=== PATIENT | female | born 1985 | race Caucasian/White ===

== ENCOUNTER 2020-01-26 13:29 | Emergency (ER) | payer BC, SELFPAY ==
--- NOTE | ~2020-01-26 | XR_ITS ---
EXAMINATION: XR ankle LT min 3V DATE: 01/26/2020 13:50 INDICATION: Left ankle injury and pain. TECHNIQUE: 4 views of left ankle were obtained. COMPARISON: Left ankle radiographs 10/08/2008 FINDINGS: Bone alignment is normal. No fracture. Joint spaces are well maintained. There is an enthes ophyte at plantar aspect of calcaneal tuberosity. Ankle soft tissue swelling is noted. IMPRESSION: 1. No acute fracture. Reviewed, dictated and finalized at location A. OR [employer]ENT IMPRESSION: 1. No acute fracture.
--- NOTE | ~2020-01-26 | XR_ITS ---
EXAMINATION: XR foot LT min 3V DATE: 01/26/2020 13:51 INDICATION: Left foot injury. TECHNIQUE: 4 views of left foot were obtained. COMPARISON: None. FINDINGS: Bone alignment is normal. No fracture. There is mild osteoarthritis of first metatarsophala ngeal joint. There is an enthesophyte at plantar aspect of calcaneal tuberosity. IMPRESSION: 1. No fracture. Reviewed, dictated and finalized at location A. ON PRESSER IMPRESSION: 1. No fracture.
--- NOTE | 2020-01-26 13:32 | ED.LOWEXIN ---
HPI - Extremity Injury (Lower) General Chief Complaint: Extremity Injury, Lower Stated Complaint: L/foot injury Time Seen by Provider: 01/26/20 13:32 Source: patient Mode of arrival: ambulatory Limitations: no limitations History of Present Illness HPI Narrative: Janeen Cabrera is a 34 yo female with no PMH who rolled ankle while walking, having pain on lateral side of left foot unable to bear full weight without pain, swelling obvious at base of lateral malleolus, incident occurred POA. In slippers and slid, no ther injury, no abrasions Related Data Home Medications Medication Instructions Recorded Confirmed norethindrone-e.estradiol-iron 1 tablet DAILY 01/26/20 01/26/20 [Microgestin FE 02/26 (28)] Allergies Allergy/AdvReac Type Severity Reaction Status Date / Time No Known Allergies Allergy Mild Verified 01/26/20 13:37 Review of Systems Review of Systems: Narrative: CONSTITUTIONAL: Denies fever, chills, sweats. EYES: Denies visual changes, redness, discharge. ENT: Denies rhinorrhea, congestion, sore throat, otalgia. CARDIOVASCULAR: Denies chest pain, palpitations, edema. RESPIRATORY: Denies dyspnea, wheezing, cough GASTROINTESTINAL: Denies abdominal pain, nausea, vomiting, diarrhea. GENITOURINARY: Denies dysuria, hematuria, abnormal discharge SKIN: Denies rash or itching. NEUROLOGIC: Denies numbness, or focal weakness. PSYCHIATRIC: Denies anxiety or depression. Left lateral ankle pain and swelling PMFSH Past Medical History Medical History No acute medical problems Family History Family History (Updated 01/26/20 @ 14:05 by Angela Bowen CNP) Other No acute medical problems Social History Social History (Updated 01/26/20 @ 14:05 by Angela Bowen CNP) Smoking status: Never smoker Alcohol intake: current Gender identity (if verbalized by the patient): Female Comments At time of signature, I agree with nursing past medical, surgical, social and family history. There is no relevant family history pertinent to the presenting complaint. Exam Narrative: Exam Narrative: GENERAL: This is a well-nourished, well-developed patient, in mild distress. HEAD: normocephalic, atraumatic. EYES: PERRL. Sclera clear/white. Vision is grossly intact. EARS: External ears normal, auditory canals clear and without drainage, TMs normal without perforation. Hearing grossly intact. NOSE: External nose normal without nasal discharge, nares without redness, no rhinorrhea. THROAT: Mucous membranes moist, posterior pharynx NECK: Neck supple, non-tender CARDIOVASCULAR: Regular rate and rhythm without murmurs, gallops, or rubs. RESPIRATORY: Clear to auscultation. Breath sounds equal bilaterally. No wheezes, rales, or rhonchi. GASTROINTESTINAL: Abdomen soft, non-tender, SKIN: warm, intact with no suspicious lesions or rash, good texture and turgor. NEURO: awake, alert, and oriented to person, place and time. There were no obvious focal neurologic abnormalities. Steady gait EXTREMITIES: Normal range of motion. Left ankle swelling with pain on weightbearing has 2+ pedal pulses tender to touch lateral side and posterior ankle above Achilles BACK: Nontender without deformity Course Course Emergency Course: Came to [facility] after rolling L ankle while trying to get shoulder car X-ray shows left ankle no break or subluxation Placed in Joel wrap and given crutches discussed RICE and gradual weightbearing as tolerated; pain medication: Follow-up with PCP Vital Signs Vital signs: Vital Signs Temperature 99.4 F 01/26/20 13:57 Pulse Rate 77 01/26/20 13:57 Respiratory Rate 16 01/26/20 13:57 Blood Pressure 129/65 01/26/20 13:57 Pulse Oximetry 100 01/26/20 13:57 Temperature 99.4 F 01/26/20 14:00 Pulse Rate 77 01/26/20 14:00 Respiratory Rate 16 01/26/20 14:00 Blood Pressure 129/65 01/26/20 14:00 Pulse Oximetry 100
[2020-01-26 13:57] VITALS: BP 129/65; PULSE 77; RESP 16; TEMP 37.4; O2SAT 100
[2020-01-26 14:00] VITALS: BP 129/65; PULSE 77; RESP 16; TEMP 37.4; O2SAT 100
== END 2020-01-26 14:11 | disposition home or self-care (01) ==
PROVIDERS: Emergency Provider Nurse Practitioner
DX: S93.402A Sprain of unspecified ligament of left ankle, initial encounter (principal); S96.912A Strain of unspecified muscle and tendon at ankle and foot level, left foot, initial encounter; X50.9XXA Other and unspecified overexertion or strenuous movements or postures, initial encounter
CPT/HCPCS: 73610; 73630; 99213; G0463